=== PATIENT | female | born 1985 | race Hispanic/Latino ===

== ENCOUNTER 2019-01-23 19:32 | Emergency (ER) | payer OTHER ==
[~2019-01-23] VITALS: Ht 154.9 cm; Wt 68.0 kg
[~2019-01-23 19:32] MED LIST: FERROUS SULF325 M2 PO; PERCOCET 5/325M1 TAB PO; PRENATA3 PO; TORADOL PO; ULTRAM50 M1 PO
[2019-01-23 20:31] LABS: IMMATURE GRANULOCYTES 0.3 % (0.0-5.0); MEAN CORPUSCULAR HGB 29.6 pG CALC (26.0-32.0); MEAN CORPUSCULAR HGB CONC 33.8 g/L CALC (32.0-36.0); NEUT# 5.01 thou/uL (2.00-7.15); RED BLOOD COUNT 4.69 mill/uL (4.20-5.60); RED CELL DISTRI WIDTH 12.6 % (11.5-15.5)
[2019-01-23 20:34] LABS: HEMATOCRIT 41.1 % (37.0-47.0); HEMOGLOBIN 13.9 g/dl (12.0-16.0); MEAN CELL VOLUME 87.6 fL CALC (80.0-100.0)
[2019-01-23 20:36] LABS: ANION GAP 14 (6-22 (CALC)); BILIRUBIN, TOTAL 0.3 mg/dL (0.0-1.4); BUN 14 mg/dL (7-17); BUN/CREATININE RATIO 20 (12-20 (CALC)); CARBON DIOXIDE 26 mmol/l (22-30); CHLORIDE 104 mmol/l (95-108); CREATININE 0.7 mg/dL (0.5-1.0); GFR > 60 ML/MIN (>=60 (CALC)); GFR FOR AFR.AMER. > 60 ML/MIN (>=60 (CALC)); POTASSIUM 4.2 mmol/l (3.5-5.1); SGOT/AST 22 u/l (14-36); SODIUM 140 mmol/l (137-146); TOTAL PROTEIN 7.2 g/dL (6.3-8.2)
[2019-01-23 20:39] LABS: ALBUMIN 4.5 g/dL (3.2-5.0); ALKALINE PHOSPHATASE 61 u/l (38-126)
[2019-01-23 22:19] LABS: BARBITURATES NEGATIVE (NEGATIVE); COCAINE NEGATIVE (NEGATIVE); METHADONE NEGATIVE (NEGATIVE); OXCYCODONE NEGATIVE (NEGATIVE); TETRAHYDROCANNABIONOL NEGATIVE (NEGATIVE); TRICYLIC ANTIDEPRESSANTS NEGATIVE (NEGATIVE)
[2019-01-23 22:20] LABS: URINE BILIRUBIN - DIPSTICK NEGATIVE (NEGATIVE); URINE BLOOD DIPSTICK NEGATIVE (NEGATIVE); URINE COLOR YELLOW; URINE GLUCOSE - DIPSTICK NEGATIVE (NEGATIVE); URINE KETONE NEGATIVE (NEGATIVE); URINE LEUK ESTERASE NEGATIVE (NEGATIVE); URINE NITRITE - DIPSTICK NEGATIVE (Negative); URINE PROTEIN - DIPSTICK NEGATIVE (NEG-TRACE); URINE UROBILINOGEN - DIPSTICK 0.2 E.U./dL (0.2)
[2019-01-23] MEDS ORDERED: ANTIVERT PO (22:25)
[2019-01-23 22:30] VITALS: BP 136/76
[2019-01-23 22:30] LABS: URINE AMORPH SEDIMENT MANY hpf (NONE-FEW); URINE RBC 0-2 RBC/hpf (0-5); URINE SQUAMOUS EPITHELIAL CELL FEW EPI/hpf (0-FEW); URINE WBC 0-2 WBC/hpf (0-5)
== END 2019-01-23 22:42 | disposition home or self-care (01) ==
LOC: ED 19:32
PROVIDERS: Emergency Medicine
DX: R42 Dizziness and giddiness (principal); R51 Headache; R11.2 Nausea with vomiting, unspecified; H93.12 Tinnitus, left ear

== ENCOUNTER 2023-05-25 07:57 | Emergency (ER) | payer OTHER ==
[2023-05-25] VITALS (11 sets, daily range): BP systolic 123–157; BP diastolic 84–116
[~2023-05-25] VITALS: Ht 154.9 cm; Wt 74.8 kg
[~2023-05-25 07:57] MED LIST changes: +ANTIVERT PO
[2023-05-25] MEDS ORDERED: LISINOPRIL5 MG PO (08:29)
[2023-05-25] MEDS ORDERED: HYDROCHLOROT25 MG PO (08:29)
[2023-05-25] MEDS ORDERED: OMEPRAZOLE DR40 MG PO (08:30)
[2023-05-25 09:16] LABS: BASO% 0.3 % (0-3); EOS% 3.2 % (0-8); HEMATOCRIT 37.6 % (37.0-47.0); HEMOGLOBIN 12.4 g/dl (12.0-16.0); IMMATURE GRANULOCYTES 0.1 % (0.0-5.0); LYMPH% 25.9 % (15-41); MEAN CORPUSCULAR HGB 26.8 pG CALC (26.0-32.0); NEUT# 4.29 thou/uL (2.00-7.15); NEUT% 62.5 % (42-76); RED BLOOD COUNT 4.62 mill/uL (4.20-5.60); RED CELL DISTRI WIDTH 14.9 % (11.5-15.5)
[2023-05-25 09:23] LABS: MEAN CELL VOLUME 81.4 fL CALC (80.0-100.0)
[2023-05-25 09:27] LABS: ALBUMIN 4.6 g/dL (3.2-5.0); ALKALINE PHOSPHATASE 93 u/l (38-126); ANION GAP 15 (6-22 (CALC)); BUN 10 mg/dL (7-17); BUN/CREATININE RATIO 16 (12-20 (CALC)); CARBON DIOXIDE 24 mmol/l (22-30); CHLORIDE 101 mmol/l (95-108); CREATININE 0.7 mg/dL (0.5-1.0); GFR FOR AFR.AMER. > 60 ML/MIN (>=60 (CALC)); GFR OTHER RACES > 60 ML/MIN (>=60 (CALC)); POTASSIUM 3.6 mmol/l (3.5-5.1); SODIUM 136 mmol/l (137-146); TOTAL PROTEIN 8.2 g/dL (6.3-8.2)
[2023-05-25 09:28] LABS: BILIRUBIN, TOTAL 0.6 mg/dL (0.02-1.3); SGOT/AST 58 u/l (14-36)
== END 2023-05-25 13:02 | disposition home or self-care (01) ==
LOC: ED 07:57
PROVIDERS: Family Medicine
DX: G43.909 Migraine, unspecified, not intractable, without status migrainosus (principal); I10 Essential (primary) hypertension; Z20.822 Contact with and (suspected) exposure to COVID-19